=== PATIENT | male | born 1960 | race African-American/Black ===

== ENCOUNTER 2017-05-01 12:46 | Emergency (ER) | payer MEDICAID ==
[~2017-05-01] VITALS: Ht 160 cm; Wt 65.0 kg
[2017-05-01] MEDS ORDERED: SODIUM CHLORIDE 0.9% 1,000 ML IV ONE (13:04)
[2017-05-01] MEDS ORDERED: TETANUS, DIPHTHERIA, PERTUSSIS VAC/PF 0.5ML (>7YR OLD) IM ONE (13:15)
[2017-05-01] MEDS ORDERED: MORPHINE SULFATE 4 MG/ML CPJ (NOT FOR IM USE) IV ONE (13:15)
[2017-05-01] MEDS ORDERED: CEFAZOLIN 1000MG PREMIX 50 ML IV ONE (13:15)
[2017-05-01 13:19] LABS: HEMATOCRIT. 44.6 % (42.0-52.0); HEMOGLOBIN. 15.5 g/dL (14.0-18.0); LYMPHOCYTES % 18.5 % (20.0-50.0); MEAN CORPUSCULAR HEMOGLOBIN 32.7 pg (28.0-32.0); MEAN CORPUSCULAR VOLUME 94.2 fL (80.0-94.0); MEAN PLATELET VOLUME 7.1 fl (7.4-10.4); MONOCYTES % 11.4 % (2.0-8.0); NEUTROPHILS % 69.1 % (40.0-76.0); PLATELET 353 x1000/uL (130-400); RED BLOOD CELL COUNT 4.73 mill/uL (4.7-6.1); RED CELL DISTRIBUTION WIDTH 13.7 % (11.6-14.6)
[2017-05-01 13:26] LABS: CHLORIDE 106 mEq/L (98-107); PROTHROMBIN TIME 10.3 sec (9.4-11.6)
[2017-05-01 13:35] LABS: CARBON DIOXIDE 26 mEq/L (21-32)
[2017-05-01 14:37] VITALS: BP 151/99
== END 2017-05-01 15:29 | disposition left against medical advice (07) ==
LOC: ER 13:11
DX: T20.26XA Burn of second degree of forehead and cheek, initial encounter (principal); T28.0XXA Burn of mouth and pharynx, initial encounter; X12.XXXA Contact with other hot fluids, initial encounter; Y93.89 Activity, other specified; Y92.89 Other specified places as the place of occurrence of the external cause; Y99.8 Other external cause status
CPT/HCPCS: 36415; 71010; 80053; 83605; 85025; 85610; 90471; 90715; 96365; 96375; 99285; J0690; J2270; J7030